=== PATIENT | male | born 2000 | race Caucasian/White ===

== ENCOUNTER → 2022-10-05 | Outpatient (CLI) | payer OTHER ==
[~2022-10-05] MED LIST: ALBU90I INH; ALBU90OI6 INH; BENADRYL PRN; Bactroban22 GM TOP; CODACEE120 PO; DIPH12.5EL PO; MELA3 PO; MONT5TCH PO; PRED15SY PO; RXONDA4ODT MM; SILSUL1TC TOP; Ultram50 MG PO; [UNRECOGNIZED DRUG - OTHER]
== END | disposition home or self-care (01) ==
LOC: LAB SHORT 12:31 → LAB 12:31
DX: L08.9 Local infection of the skin and subcutaneous tissue, unspecified (principal); B95.8 Unspecified staphylococcus as the cause of diseases classified elsewhere
CPT/HCPCS: 87070; 87075; 87077; 87147; 87186; 87205